=== PATIENT | female | born 1950 | race Caucasian/White ===

== ENCOUNTER → 2016-10-02 | Outpatient (CLI) | payer MEDICARE, OTHER | LOC: LAB 14:02 | DX: J45.909 Unspecified asthma, uncomplicated (principal); R53.81 Other malaise | CPT/HCPCS: 36415; 82785 ==

== ENCOUNTER → 2020-07-12 | Outpatient (CLI) | payer MEDICARE, OTHER ==
[~2020-07-12] VITALS: Ht 157.5 cm; Wt 95.3 kg
== END ==
LOC: OPSV 10:00
DX: G70.00 Myasthenia gravis without (acute) exacerbation (principal)
CPT/HCPCS: 96365; 96366; J1568

== ENCOUNTER → 2020-09-24 | Outpatient (CLI) | payer MEDICARE, OTHER ==
[~2020-09-24] VITALS: Ht 157.5 cm; Wt 95.3 kg
== END ==
LOC: OPSV 08:00
DX: G70.00 Myasthenia gravis without (acute) exacerbation (principal)
CPT/HCPCS: 96365; 96366; J1568

== ENCOUNTER → 2020-11-24 | Outpatient (CLI) | payer MEDICARE, OTHER ==
[~2020-11-24] VITALS: Ht 157.5 cm; Wt 95.3 kg
== END ==
LOC: OPSV 07:40
DX: G70.00 Myasthenia gravis without (acute) exacerbation (principal)
CPT/HCPCS: 96365; 96366; J1568

== ENCOUNTER → 2021-03-31 | Outpatient (CLI) | payer MEDICARE, OTHER ==
[~2021-03-31] VITALS: Ht 157.5 cm; Wt 99.8 kg
== END ==
LOC: OPSV 08:00
DX: M62.81 Muscle weakness (generalized) (principal)
CPT/HCPCS: 96365; 96366; J1568

== ENCOUNTER → 2021-05-30 | Outpatient (CLI) | payer MEDICARE, OTHER ==
[~2021-05-30] VITALS: Ht 157.5 cm; Wt 95.3 kg
== END ==
LOC: OPSV 09:00
DX: M62.81 Muscle weakness (generalized) (principal)
CPT/HCPCS: 96365; 96366; J1568

== ENCOUNTER → 2021-07-25 | Outpatient (CLI) | payer MEDICARE, OTHER ==
[~2021-07-25] VITALS: Ht 157.5 cm; Wt 95.3 kg
== END ==
LOC: OPSV 09:00
DX: M62.81 Muscle weakness (generalized) (principal)
CPT/HCPCS: 96365; 96366; J1568